=== PATIENT | male | born 1985 | race Caucasian/White ===

== ENCOUNTER 2024-10-12 06:51 | Outpatient (CLI) | payer MEDICAID, SELFPAY ==
--- NOTE | 2024-10-12 07:06 | MR_ITS ---
FINAL REPORT CLINICAL HISTORY: HEADACHE, DIZZINESS AND BLURRED VISION FINDINGS: Multiple projection images of the brain arterial vasculature were obtained without contrast. raw data images were also reviewed. The internal carotid arteries are patent. The middle cerebral arteries and visualized proximal branches are patent. The anterior cerebral arteries are patent. The intracranial vertebral arteries are patent. The basilar artery is patent. The posterior cerebral arteries are patent. IMPRESSION: No major vessel occlusion. Reviewed, Interpreted and Dictated by Rudolph Jiménez MD Transcribed by Kayla Alonzo Authenticated and [facility]
== END 2024-10-12 23:59 | disposition home or self-care (01) ==
LOC: RAD 06:53
PROVIDERS: PCP Physician Assistant; Visit Provider Physician Assistant
DX: R51.9 Headache, unspecified (principal)
CPT/HCPCS: 70544

== ENCOUNTER 2024-10-15 08:36 | Outpatient (CLI) | payer MEDICAID, SELFPAY ==
--- NOTE | 2024-10-15 08:56 | MR_ITS ---
FINAL REPORT TECHNIQUE: Multiplanar and multisequence imaging of the brain was obtained before and after contrast administration. CLINICAL HISTORY: HEADACHE ON THE RIGHT SIDE OF HEAD WORST WHEN COUGHING 29 ML PROHANCE COMPARISON: None FINDINGS: The gyri and sulci are within normal limits for age. There is no mass effect or midline shift. Signal intensity is normal. No hydrocephalus. The cerebellum and brainstem have an unremarkable appearance. There are no areas of restricted diffusion on diffusion weighted images to suggest acute infarct. Soft tissues are without acute abnormality. There is increased signal in the mastoid air cells bilaterally that may represent mastoiditis. No pathologic contrast enhancement is identified. IMPRESSION: No acute intracranial abnormality and no pathologic contrast enhancement. Bilateral increased signal in the mastoid air cells that may represent mastoiditis. Reviewed, Interpreted and Dictated by Radha Shipley MD Transcribed by Norma Jaeger Authenticated and [facility]
[2024-10-15 09:57] LABS: Blood Urea Nitrogen 17 mg/dl (9-20); Estimated Glomerular Filt Rate 94 ml/min (>60); GFR (African American) 114 ML/MIN (>60)
[2024-10-15] MEDS: GADOTERIDOL INJ 10ML SYRINGE 9 ML IV (10:02)
[2024-10-15] MEDS: GADOTERIDOL INJ 20ML SYRINGE 20 ML IV (10:02)
[2024-10-15] MEDS: SODIUM CHLORIDE 0.9% 10ML SYR (RAD ONLY) 10 ML IV (10:02)
== END 2024-10-15 23:59 | disposition home or self-care (01) ==
PROVIDERS: PCP Physician Assistant; Visit Provider Physician Assistant
DX: R51.9 Headache, unspecified (principal)
CPT/HCPCS: 36415; 70553; 82565; 84520; A9576